=== PATIENT | female | born 1975 | race Hispanic/Latino ===

== ENCOUNTER → 2025-01-09 | Outpatient (CLI) | payer OTHER ==
--- NOTE | 2025-01-10 09:52 | HMCIMG ---
EXAMINATION: ULTRASOUND OF THE THYROID. CLINICAL HISTORY: Enlarged thyroid and autoimmune thyroiditis. COMPARISON: None. TECHNIQUE: Transverse and longitudinal images were obtained through both lobes and the isthmus of the thyroid. FINDINGS: The thyroid gland is normal in caliber with heterogenous tissue echotexture. The right thyroid lobe measures 3.5 x 1.1 x 1.1 cm and the left thyroid lobe measures 3.2 x 1.0 x 1.2 cm in the craniocaudal, AP, and transverse dimensions respectively. The isthmus measures 0.43 cm in AP dimension. Right lobe: There are no focal lesions. Left lobe: There is an isoechoic solid nodule that measures 0.7 x 0.3 x 0.6 cm at the mid pole (TR3). No significantly enlarged lymph nodes. IMPRESSION: Heterogenous echotexture of both lobes of the thyroid, of concern for thyroiditis. Nodule in the left lobe of the thyroid. TI-RADS follow up recommendations: TR1: no FNA required TR2: no FNA required TR3: more than or equal to 1.5 cm follow up, more than or equal to 2.5 cm FNA follow up: 1, 3 and 5 years TR4: more than or equal to 1.0 cm follow up, more than or equal to 1.5 cm FNA follow up: 1, 2, 3 and 5 years TR5: more than or equal to 0.5 cm follow up, more than or equal to 1.0 cm FNA annual follow up for up to 5 years /[facility]andler
== END | disposition home or self-care (01) ==
LOC: RAH 14:56
PROVIDERS: ATTEND Family Medicine
DX: E04.1 Nontoxic single thyroid nodule (principal); E06.3 Autoimmune thyroiditis
CPT/HCPCS: 76536